=== PATIENT | female | born 1995 | race Caucasian/White ===

== ENCOUNTER 2017-02-26 10:02 | Emergency (ER) | payer OTHER ==
[2017-02-26 12:04] LABS: RED BLOOD COUNT 4.81 M/UL (4.00-5.10); WHITE BLOOD COUNT 8.3 K/UL (4.5-11.0)
[2017-02-26 12:27] LABS: BUN/CREATININE RATIO 13 (0-10)
== END 2017-02-26 14:38 | disposition home or self-care (01) ==
LOC: ER1 10:02
PROVIDERS: Physician Assistant
DX: R10.31 Right lower quadrant pain (principal); Z88.0 Allergy status to penicillin; R11.2 Nausea with vomiting, unspecified; R51 Headache
CPT/HCPCS: 36415; 80053; 81001; 84703; 85025; 96361; 96374; 99284; J1885

== ENCOUNTER 2021-01-04 14:50 | Emergency (ER) | payer OTHER ==
[2021-01-04 16:10] LABS: HEMOGLOBIN 11.3 gm/dl (12.3-15.3); RED BLOOD COUNT 4.65 M/UL (4.00-5.10); WHITE BLOOD COUNT 13.3 K/UL (4.5-11.0)
[2021-01-04 16:37] LABS: BUN/CREATININE RATIO 15 (0-10)
[2021-01-04] MEDS ORDERED: ZYRTEC10 M3 PO (17:39)
[2021-01-04] MEDS ORDERED: CEFUROXIME500 MG PO (17:39)
== END 2021-01-04 18:30 | disposition home or self-care (01) ==
LOC: ER1 14:50
PROVIDERS: Preventive Medicine Occupational Medicine
DX: N39.0 Urinary tract infection, site not specified (principal); R21 Rash and other nonspecific skin eruption; J45.909 Unspecified asthma, uncomplicated; Z20.822 Contact with and (suspected) exposure to COVID-19
CPT/HCPCS: 0240U; 71045; 80053; 81001; 84703; 85025; 85652; 86140; 86403; 87081; 87086; 87880; 96374; 96375; 99283; J0696; J2930